=== PATIENT | female | born 1980 | race Two or more races ===

== ENCOUNTER 2024-07-14 12:24 | Emergency (ER) | payer OTHER ==
[~2024-07-14] VITALS: Ht 160 cm; Wt 92.1 kg
[2024-07-14] MEDS ORDERED: GUAIFENESIN/DEXTROMETHORPHAN 10ML BLIST.PACK PO ONE (15:00)
[2024-07-14] MEDS ORDERED: METHYLPREDNISOLONE SOD SUCC 125 MG VIAL IV ONE (15:00)
[2024-07-14] MEDS ORDERED: IPRATROPIUM/ALBUTEROL SULFATE 3 ML AMPUL.NEB IH SCH (15:00)
[2024-07-14] MEDS ORDERED: METHYLPREDNISOLONE SOD SUCC 125 MG VIAL ONE (15:05)
[2024-07-14] MEDS ORDERED: GUAIFEN/DEXTROMETHORPHAN/PE 10 ML BLIST.PACK PO ONE (15:05)
[2024-07-14 16:14] LABS: HEMATOCRIT 37.4 % (36.0-45.00); HEMOGLOBIN 12.3 g/dL (12.0-15.00); MEAN CELL VOLUME 79.2 fL (80.00-100.00); MEAN CORPUSCULAR HEMOGLOBIN 26.1 pg (27.00-32.0); MEAN CORPUSCULAR HGB CONC 32.9 g/dl (32.0-36.0); PLATELET COUNT 213 K/uL (150-450); RED BLOOD COUNT 4.72 M/uL (4.00-6.00); RED CELL DISTRIBUTION WIDTH 15.5 % (11.5-14.5)
[2024-07-14] MEDS ORDERED: IPRATROPIUM/ALBUTEROL SULFATE 3 ML AMPUL.NEB IH ONE (17:29)
[2024-07-14] MEDS ORDERED: ZITHROMAX500 MG PO (18:45)
[2024-07-14] MEDS ORDERED: SINGULAIR10 MG PO (18:45)
[2024-07-14] MEDS ORDERED: DIABETIC TUSSI118 ML PO (18:45)
[2024-07-14] MEDS ORDERED: IPRATROPIU0.2 MG/1 M IH (18:45)
[2024-07-14] MEDS ORDERED: ALBUTEROL1.25 MG/3 IH (18:45)
== END 2024-07-14 18:55 ==
LOC: ER 12:27
PROVIDERS: General Practice
DX: R53.81 Other malaise (principal); J06.9 Acute upper respiratory infection, unspecified; J45.909 Unspecified asthma, uncomplicated; J00 Acute nasopharyngitis [common cold]; Z20.822 Contact with and (suspected) exposure to COVID-19; I10 Essential (primary) hypertension; E11.9 Type 2 diabetes mellitus without complications; Z88.0 Allergy status to penicillin; Z88.6 Allergy status to analgesic agent